=== PATIENT | male | born 1945 | race Caucasian/White ===

== ENCOUNTER → 2024-06-17 10:48 | Outpatient (REF) | payer MEDICARE, OTHER, SELFPAY ==
--- NOTE | 2024-06-19 15:01 | EEG.RPT ---
Electroencephalogram Report
Recording
Date of EE06/19/24
Type of EEG: Routine
Length of EEG recordin minutes
Done with Video Recording: Yes
Patient Status: Outpatient
Recording Conditions: Awake, Drowsy and Asleep
Hyperventilation Performed: Yes
Photic Stimulation Performed: Yes
Report
LESS THAN 1 HOUR EEG REPORT
EEG INTERPRETATION:
Unremarkable EEG for age
CLINICAL CORRELATION:
A normal EEG does not rule out a diagnosis of epilepsy. If clinical suspicion for seizure persists, a prolonged recording may be warranted.
Clinical correlation is advised.
METHODS:
A 21 channel digitized electroencephalogram (EEG) was performed in the [facility]. The 10/20 international system of electrode placement was used with ECG and lateral/vertical eye movements recorded. Persyst quantitative EEG
analysis was performed.
ELECTROENCEPHALOGRAPHER IMPRESSION(S):
Quality of study
Good
Background
Unremarkable, well maintained, medium amplitude alpha-frequency and unremarkable anterior-posterior voltage gradient
With eye opening the background activity changed to a low voltage mixture of frequencies.
Sleep
Drowsiness present
Hyperventilation
Did not activate the record
Photic Stimulation
Did not activate the record
ECG
Normal sinus rhythm
== END ==
LOC: EEG 10:48
PROVIDERS: ATTENDING PHYSICIAN Psychiatry & Neurology Neurology; FAMILY PHYSICIAN Internal Medicine
DX: R56.9 Unspecified convulsions (principal)
CPT/HCPCS: 95816

== ENCOUNTER → 2024-06-24 20:27 | Outpatient (REF) | payer MEDICARE, OTHER, SELFPAY | LOC: MRI 20:27 | PROVIDERS: ATTENDING PHYSICIAN Psychiatry & Neurology Neurology; FAMILY PHYSICIAN Internal Medicine | DX: R56.9 Unspecified convulsions (principal) | CPT/HCPCS: 70551 ==

== ENCOUNTER → 2024-06-26 18:05 | Outpatient (REF) | payer MEDICARE, OTHER, SELFPAY | LOC: PAVMRI 18:05 | PROVIDERS: ATTENDING PHYSICIAN Pain Medicine Interventional Pain Medicine; FAMILY PHYSICIAN Internal Medicine | DX: M54.16 Radiculopathy, lumbar region (principal) | CPT/HCPCS: 72148 ==

== ENCOUNTER → 2024-07-12 09:56 | Outpatient (REF) | payer MEDICARE, OTHER, SELFPAY | LOC: HWRCS 09:56 | PROVIDERS: ATTENDING PHYSICIAN Internal Medicine Cardiovascular Disease; FAMILY PHYSICIAN Internal Medicine | DX: I10 Essential (primary) hypertension (principal); I35.0 Nonrheumatic aortic (valve) stenosis; Z95.1 Presence of aortocoronary bypass graft; I25.10 Atherosclerotic heart disease of native coronary artery without angina pectoris | CPT/HCPCS: 93306 ==

== ENCOUNTER 2025-07-05 16:20 | Inpatient (IN) | payer MEDICARE, OTHER, SELFPAY ==
[2025-07-04] VITALS (8 sets, daily range): BP systolic 126–166; BP diastolic 62–78
[2025-07-04 16:16] LABS: APTT 45.0 Sec (23.4-35.0)
[2025-07-04 16:21] LABS: ALT (SGPT) 27 U/L (0-50); AST (SGOT) 29 U/L (17-59); Albumin 4.3 g/dl (3.5-5.0); Alkaline Phosphatase 60 U/L (38-126); Blood Urea Nitrogen 29 mg/dl (9-20); Calcium 9.1 mg/dl (8.4-10.2); Carbon Dioxide 24 mmol/L (22-30); Chloride 100 mmol/L (98-107); Glucose 103 mg/dl (70-99); Lipase 107 U/L (23-300); Potassium 4.2 mmol/L (3.5-5.1); Sodium 134 mmol/L (135-145); Total Protein 7.0 g/dl (6.3-8.2); eGFR 43.56
[2025-07-04 16:22] LABS: Hematocrit 39.5 % (39.0-52.0); Hemoglobin 14.0 g/dL (13.0-18.0); Mean Corp Hgb Conc. 35.4 g/dL (33.0-37.0); Mean Corpuscular Volume 85.5 fL (80.0-94.0); Nucleated Red Blood Cells % 0 % (-); Platelet Count 283 10^3/uL (130-400); Red Cell Dist. Width 12.6 % (11.5-14.5)
[2025-07-04 16:31] LABS: Troponin I < 0.012 ng/ml
--- NOTE | 2025-07-04 17:42 | ED.GENMED ---
History of Present Illness
General
Chief Complaint: Chest Pain
Source: patient
Exam Limitations: none
Time Seen by Provider: 07/04/25 17:16
Nursing documentation reviewed up to this point in time: agreed with
History of Present Illness
History of Present Illness:
The patient is a 79-year-old man with past medical history of coronary artery disease who reports that he grew concerned yesterday when he developed chest pain and shortness of breath while walking his dog. Patient reports he walked his dog again
today and developed some shortness of breath and left arm pain. Currently he is 1 out of 10 heaviness in his left arm but denies chest pain or shortness of breath. Patient denies swelling of his legs. Patient denies calf pain. Patient reports he
is followed by Dr. Ramirze
Past History
Past History
ED Past Medical History: CAD, HTN, Hypercholesterolemia and Seizures
ED Past Surgical History: Cardiac
Social History
Tobacco: Other
Alcohol: Other
Drug: None
Personal:
Living: with family
Employment: Other
Family History
Family History: Other
Review of Systems
Review of Systems
Allergies reviewed?: Yes
All Other Systems: ROS reviewed and negative except as documented in HPI and ROS
Constitutional: Reports no symptoms
EENT: Reports no symptoms
Respiratory: Reports trouble breathing
Cardiac: Reports chest pain
ABD/GI: Reports no symptoms
: Reports no symptoms
Musculoskeletal: Reports no symptoms
Skin: Reports no symptoms
Neurological: Reports no symptoms
Endocrine: Reports no symptoms
Hematologic/Lymphatic: Reports no symptoms
Psychiatric: Reports no symptoms
Phy Exam
Physical Exam
Physical Exam:
Physical Exam
General: no apparent distress, not acutely ill
Neck: supple. no meningeal signs. normal psoterior pharynx
Heart: s1/s2 regular rate and rhythm
Lungs: no acute respiratory distress. clear bilaterally
Abdomen: normal bowel sounds. not tender. no CVAT
Neuro: alert and oriented. no focal neurological deficits
Skin: no rash
Psychiatric: well kept. interactive and cooperative
Extremities: no edema. no calf tenderness. negative homans. good distal pulses
Scores
Heart Score for Chest Pain Patients
STEMI patient?: Not applicable
Course
Orders/Labs/Results
Orders:
Orders
07/04/25 15:13
Electrocardiogram (*1) Urgent
Reason for Study: Chest Pain
EKG- Treatment ONCE
07/04/25 15:36
Complete Blood Count/With Diff Urgent
Comprehensive Metabolic Panel Urgent
Lipase Urgent
PTT Urgent
Troponin I Urgent
07/04/25 18:22
Aspirin Chewable [Low Strength Aspirin] 324 mg PO NOW STA
Nitroglycerin Ointment [Nitro-Bid] 1 inch TOPICAL NOW STA
Abnormal Lab Results
07/04/25
15:36
RBC 4.62 L 10^6/uL
(4.70-6.10)
Absolute Monos (auto) 0.7 H 10^3/uL
(0.1-0.6)
Lymphocytes % 20.1 L %
(20.5-51.1)
APTT 45.0 H Sec
(23.4-35.0)
Sodium 134 L mmol/L
(135-145)
BUN 29 H mg/dl
(9-20)
Creatinine 1.6 H mg/dL
(0.7-1.3)
Glucose 103 H mg/dl
(70-99)
07/04/25 15:36
07/04/25 15:36
Vital Signs
Initial and Last Documented VS:
Initial Vital Signs
Temp Pulse Resp BP Pulse Ox
97.7 F 65 16 148/70 100
07/04/25 15:19 07/04/25 15:19 07/04/25 15:19 07/04/25 15:19 07/04/25 15:19
Last Documented Vital Signs
Temp Pulse Resp BP Pulse Ox
97.7 F 59 16 164/69 98
07/04/25 15:19 07/04/25 18:00 07/04/25 18:00 07/04/25 18:00 07/04/25 18:00
MDM/Problems Addressed
Differential Diagnosis Includes:
Acute coronary syndrome, PE, aortic dissection, pneumonia
MDM/Problems Addressed:
Patient presents with acute chest pain and shortness of breath while walking the dog
Chronic conditions affecting care: CAD
Acute Exacerbation and/or Progression of Chronic Illness:
Patient probably has acute on chronic coronary artery disease
Acute Exacerbation and/or Progression of Chronic Illness: CAD
*Pulse Oximetry
SaO2: 98
Oxygen Mode of Delivery: Room air
Patient hypoxic: no
*EKG
Interpreted by ED Provider?: Yes
Interpretation: abnormal
Comparison EKG: no comparison EKG present
Rate: normal
Rhythm: sinus
Mounds: normal axis
Interval: normal interval
QRS Pattern: normal QRS
Ischemia: non-specific ST changes
*Sales Order Clerk Interpretation
Rate: normal
Interpretation: normal
Rhythm: sinus
*Critical Care Note
Total Time (30-74mins, 75-104mins- exclusive of procedures): Not Applicable
Data Reviewed
Review of Other/Old Records Reveals: Testing (Cardiac echo appears normal from July 2024)
Source: patient and spouse
Patient Management
Social determinants of health affecting care: Living situation and Strong social support
Discussion with other providers: Hospitalist and Other (Dr. Michael Cardenas that patient is being admitted.)
ED Attending Note
-
Portions of this chart may have been created with voice recognition software.� Occasional wrong word or��sound alike� substitutions may have occurred due to the inherent limitations of voice recognition software.
Discharge Plan
Departure
Patient Disposition: Admit
Date of Disposition: 07/04/25
Time of Disposition: 18:23
Admit to: Telemetry
Presentation/result/management discussed w/ accepting MD/DO: Hospitalist
Condition: Good
Covid-19: Not Applicable
Discharge Problem:
Chest pain
Referrals:
Abdi Polanco MD [Family Provider]
Interventions
Interventions:
*General Assessment Last Done: 07/04/25 15:19
*Neglect/Abuse Screening Last Done: 07/04/25 15:19
*ED COVID-19 Vaccine History Last Done: 07/04/25 15:19
*ED Influenza Vaccine History Last Done: 07/04/25 15:19
[facility] Risk Assessment Tool Last Done: 07/04/25 15:10
*Risk Screen - Suicide (C-SSRS) Last Done: 07/04/25 15:19
ED- Cardiac Assessment Last Done: 07/04/25 18:14
Discharge Date and Time
Print Language: ANGUILLAN
[2025-07-04] MEDS: LOW STRENGTH ASPIRIN 324 MG PO (18:27)
[2025-07-04] MEDS: NITRO-BID 1 INCH TOPICAL (18:27)
--- NOTE | 2025-07-04 18:27 | HPS.HSE ---
Addendum entered and electronically signed by Baldev Hill MD 07/04/25 19:12:
This is an addendum to H&P written by Ladan John on 07/04/2025. �Patient seen and examined independently with BLOCK CUTTER.
79-year-old male past medical history of CAD, hypertension, hypercholesteremia, seizures, elevated uric acid level presenting with chest pain and shortness of breath yesterday while walking dog. �Today developed shortness of breath and left arm pain
again while walking dog.� Has slight dull chest pain currently.�
Vital signs unremarkable.
Labs show creatinine of 1.6.
EKG shows normal sinus rhythm. �Troponin negative.
Patient with unstable angina symptoms.� Trend troponins. Nitroglycerin given. �Aspirin given. �Cardiology consulted and planning on cardiac catheterization on Monday.
Unclear if creatinine 1.6 represents CKD or JUN. Hold nephrotoxic medications and monitor for now.�
Original Note:
Family Physician
-
Family Physician: Abdi Polanco
Chief Complaint
-
left sided chest pain
History of Present Illness
79-year-old man with past medical history of coronary artery disease, seizure, HTN, HLD presented to us with left sided chest pain which he noticed while walking the dog outside. he felt dull pain associated with sob. today morning, he woke up with
the dull left sided chest pain radiating to left arm. denied CRAVEN, dizzy or syncope.denied fever, chills, cough,congestion.denied CRAVEN, dizzy or syncope.denied abdominal pain,n,v,d. denied dysuria or hematuria.
admitting for further management.
Medical History
Past Medical History
Past Medical History: Reports Other
Additional Past Medical History:
Hyperlipidemia, hypertension, aortic stenosis, seizure
Past Surgical History: Reports Other
Additional Past Surgical History:
Coronary artery bypass graft, hernia surgery, cholecystectomy, triple bypass
Social History
Tobacco: Non-smoker
Alcohol: None
Drug: None
Personal:
Living: With Family
Family History
Family History: Not pertinent
Allergies / Home Medications
Allergies reflects when Allergies were last updated in [facility].
Home Medications with original date entered in [facility]
Allergy/Medication List:
Allergies
Allergy/AdvReac Type Severity Reaction Status Date / Time
atorvastatin (From Lipitor) Allergy Unknown Verified 07/04/25 15:26
Review of Systems
-
Constitutional: Reports No Symptoms
EENT: Reports No Symptoms
Respiratory: Reports Trouble Breathing
Cardiac: Reports Chest Pain
Abdomen/GI: Reports No Symptoms
: Reports No Symptoms
Musculoskeletal: Reports No Symptoms
Skin: Reports No Symptoms
Neurological: Reports No Symptoms
Endocrine: Reports No Symptoms
Hematologic/Lymphatic: Reports No Symptoms
Psych: Reports No Symptoms
Physical Exam
Vital Signs
Vital Signs
Temp Pulse Resp BP Pulse Ox
97.7 F 59 16 164/69 98
07/04/25 15:19 07/04/25 18:00 07/04/25 18:00 07/04/25 18:00 07/04/25 18:00
Physical Exam
General: Well Developed, Well Nourished and No Apparent Distress
HEENT: NormoCephalic, Moist mucous membranes and Atraumatic
Respiratory: Clear
Cardiac: S1/S2 and Regular Rhythm; No Murmur or Rub
GI: Soft, Non Tender, Non Distended and Normal Bowel Sounds; No Organomegaly
Rectal: Deferred by Provider
Musculoskeletal: No Clubbing, No Cyanosis and No Edema
Skin: No Rash
Neuro: AO x 3 and Nonfocal/grossly intact
Psych: Calm
Laboratory Results
-
07/04/25 15:36
07/04/25 15:36
Laboratory Results
APTT 45.0 Sec (23.4-35.0) H 07/04/25 15:36
Total Bilirubin 0.6 mg/dl (0.2-1.3) 07/04/25 15:36
AST 29 U/L (17-59) 07/04/25 15:36
ALT 27 U/L (0-50) 07/04/25 15:36
Alkaline Phosphatase 60 U/L (38-126) 07/04/25 15:36
Troponin I < 0.012 ng/ml 07/04/25 15:36
Lipase 107 U/L (23-300) 07/04/25 15:36
Data Reviewed
-
Lab Data: Labs Reviewed by me
Impression/Plan
-
#exertional chest pain associated with sob unstable angina
-plan for cardiac cath on Monday
-cardiology consulted.
-EKG with NSR, poor P wave progression. Nonspecific T wave abnormality
-asa continued
-trend trop
-nitro in ER
#Acute kidney injury
-cr 1.6
hold hctz and losartan
-BMP in am
#essential HTN
-held valsartan and hctz due to JUN
#HLD
-statin and Zetia continued
#seizure
-Lamictal continued
#DVT Prophylaxis
-heparin sq
#CODE status
-full code
--- NOTE | 2025-07-04 20:47 | TRANSFER ---
Pt arrived from ED by stretcher. Ambulated into room. A&O x 3. VSS. Troponin drawn and EKG taken per transfer orders. Call mccauley within reach. Will continue to monitor.
[2025-07-04] MEDS: ZETIA 10 MG PO (22:32)
[2025-07-04] MEDS: LAMICTAL 100 MG PO (22:32)
[2025-07-04] MEDS: PRAVACHOL 80 MG PO (22:32)
[2025-07-04 22:53] LABS: Troponin I 0.013 ng/ml
--- NOTE | 2025-07-05 01:42 | W.PN.UPDATE ---
Update Note
Progress Note Update
Pt states that he wishes to be a DNR and his can bring in a formal copy of his code status in the morning. After discussion- pt is aware that DNR means we will not initiate CPR or intubate if his heart or breathing stop. Pt verbalizes
understanding. Code status changed to DNR.
[2025-07-05 01:48] LABS: Troponin I 0.016 ng/ml
[2025-07-05 03:00] VITALS: BP 109/57
[2025-07-05 04:34] LABS: Hematocrit 38.4 % (39.0-52.0); Hemoglobin 13.6 g/dL (13.0-18.0); Mean Corp Hgb Conc. 35.4 g/dL (33.0-37.0); Mean Corpuscular Volume 85.9 fL (80.0-94.0); Platelet Count 263 10^3/uL (130-400); Red Cell Dist. Width 12.4 % (11.5-14.5)
[2025-07-05 04:59] LABS: Blood Urea Nitrogen 33 mg/dl (9-20); Calcium 8.8 mg/dl (8.4-10.2); Carbon Dioxide 25 mmol/L (22-30); Chloride 102 mmol/L (98-107); Glucose 97 mg/dl (70-99); HDL Cholesterol 45 mg/dl; LDL Cholesterol, Calculated 56 mg/dl; Potassium 3.9 mmol/L (3.5-5.1); Sodium 135 mmol/L (135-145); Very Low Density Lipoprotein 21 mg/dl (0-30); eGFR 55.88
[2025-07-05 05:08] LABS: Troponin I 0.017 ng/ml
[2025-07-05 07:00] VITALS: BP 128/67
[2025-07-05] MEDS: LAMICTAL 100 MG PO ×2 (08:26→21:32)
[2025-07-05] MEDS: LOW STRENGTH ASPIRIN 81 MG PO (08:26)
[2025-07-05 09:55] LABS: Glycohemoglobin (HgbA1c) 5.6 % (4.0-5.9)
--- NOTE | 2025-07-05 10:46 | CON.CAR ---
Addendum entered and electronically signed by Beau Cardenas MD 07/05/25 14:54:
I reviewed and agree with the note by BISHNU Bennett and it accurately reflects our care.
I saw and evaluated the patient, and I provided the substantive portion of the medical decision making. My assessment and plan is below:
79-year-old man with coronary artery disease s/p CABG in 2015, hypertension, hyperlipidemia, mild/moderate aortic stenosis who presents with 2 weeks of chest discomfort and dyspnea on exertion. Symptoms feel similar to when he needed CABG in 2015
but less intense. At the time of my interview he is chest pain-free.
Physical exam: RRR, harsh systolic murmur, clear lungs, no lower extremity edema
Labs notable for troponin less than 0.012, 0.013, 0.016, 0.017. Creatinine 1.6 -> 1.3. LDL 56.
ECG: Sinus bradycardia with anterior T wave flattening/inversions
TTE 07/12/2024: LVEF 60-65%, mild/mod with peak/mean 34/19 mmHg
Chest discomfort/DURBIN: Concerning for angina. Will plan for stress test on Monday. Will also check echocardiogram to look for worsening valvular disease though would be unusual for to progress this quickly. Okay to stop trending troponins.
Please repeat ECG/troponin for recurrent chest pain. Continue aspirin, statin, and Zetia.
Original Note:
Consultation
Consultation Request
Date/Time Consultation Requested: 07/04/25 8:45p
Date/Time Consultation Performed: 07/05/25 9a
Requesting Provider: BISHNU Green
Performing Provider: BISHNU Bennett for Dr. Cardenas
Reason for Consultation: chest pain
Medical History
-
Chief Complaint: chest pain
History of Present Illness:
Mr. Guaman is a 79 yo male (patient of Dr. Ramirez) with CAD status post CABG x 3 in 2014, mild/moderate aortic stenosis, hypertension, dyslipidemia, seizure disorder, and RADHA, who presents to the ER with complaints of chest pain and dyspnea
exertion for 2 weeks. He also describes left lateral chest pain that is worse when taking a deep breath. Chest pain and shortness of breath occurred while taking out his trash, walking 30 feet, and while walking his dog on [address]. Symptoms
improved with rest and felt similar to when he needed CABG in 2015. He did not use sublingual nitro, he was given aspirin and nitro in the ER with some relief of pain. He currently has mild left lateral chest pain at rest. He is admitted to the
hospitalist service and we are consulted for chest pain and shortness of breath.
Past Medical History
Past Medical History: Other (as above)
Past Surgical History: Cardiac (CABG x 2 2014)
Social History
Tobacco: Former Smoker
Alcohol: Occasional
Personal:
Living: With Family
Employment: Retired
Family History
Family History: Reviewed & Not Pertinent
Allergies / Home Medications
Allergy/AdvReac Type Severity Reaction Status Date / Time
atorvastatin (From Lipitor) Allergy Unknown Verified 07/04/25 15:26
�Medication �Instructions �Recorded �Confirmed �Type
aspirin 81 mg tablet 81 mg PO DAILY Blood Clot 07/04/25 07/04/25 History
Prevention/Tx
ezetimibe 10 mg tablet 10 mg PO HS High Cholesterol 07/04/25 07/04/25 History
hydrochlorothiazide 25 mg tablet 25 mg PO DAILY Fluid 07/04/25 07/04/25 History
Retention/Swelling
lamotrigine 100 mg tablet 100 mg PO BID Seizures 07/04/25 07/04/25 History
pravastatin 80 mg tablet 80 mg PO HS High Cholesterol 07/04/25 07/04/25 History
valsartan 320 mg tablet 320 mg PO DAILY Blood Pressure 07/04/25 07/04/25 History
Review of Systems
-
History Source: Patient
All other systems: Negative unless noted
Physical Exam
Vital Signs
Temp Pulse Resp BP Pulse Ox
98.6 F 61 17 128/67 97
07/05/25 07:00 07/05/25 07:00 07/05/25 07:00 07/05/25 07:00 07/05/25 07:00
Lab Results
07/05/25 04:25
07/05/25 04:25
Troponin I 0.017 ng/ml 07/05/25 04:25
Physical Exam
General: Well Developed, Well Nourished and No Apparent Distress
HEENT: Normocephalic, Anicteric and Moist Mucous Membranes
Respiratory: Clear and Non Labored Respirations
Cardiac: S1/S2, Regular Rhythm and Murmur (2-3/6 LALITA)
Breast: Deferred by me
GI: Soft and Non Distended
Rectal: Deferred by Provider
Genito-urinary: Clear Urine
Musculoskeletal: No Cyanosis and No Edema
Skin: Warm and Dry
Neuro: AO x 3
Hematologic/Lymphatic: No Lymphadenopathy
Psych: Calm
Impression / Plan
-
Chest pain - stable angina.
- Left lateral chest pain worse with deep breath.
- Troponin trend, less than 0.012, 0.013, 0.016, 0.017.
- Nitro paste on currently.
- consider stress testing vs cath on Monday07/07/25.
Aortic stenosis - mild to moderate on echo 07/2024.
- peak/mean gradients 34/19 mmHg.
- check echo.
- symptoms could be from worsened .
HTN - stable on meds, continue.
HLD - stable on Zetia and Pravastatin.
- LDL 56.
Seizure disorder - stable on meds.
JUN - on admit creatinine 1.6.
- now down to 1.3.
Data Reviewed
-
EKG: Tracing Personally Visualized and interpreted
Radiology: Report Reviewed by me
Medical Tests (Nuc Med, Echo etc): Report Reviewed by me (echo 07/2024: EF 60%, mild-moderate with peak/mean gradient 34/19 mmHg)
Labs: Labs Reviewed by me
Old Records: Reviewed
[2025-07-05 11:00] VITALS: BP 124/63
--- NOTE | 2025-07-05 11:56 | W.PN.HOSP.TC ---
Today's Communication/Plan
-
see plan
Assessment / Plan
Assessment / Plan
Gen: NAD, AAOx3.
Eyes: EOMI, PERRLA, no scleral icterus.
Neck: supple.
CV: RRR, +S1/S2, no m/r/g.
Resp: CTAB, no rales, wheezes, or rhonchi.
Abd: +BS, soft, NT, ND
Skin: No rashes.
Neuro: CN 2-12 intact, non-focal.
Psych: Normal mood and affect.
Stable angina:
-EKG (read by me): SB @ 53, no axis/intervals, TWi V2-V3, no acute ST changes
-Trops <0.012, 0.013, 0.016, 0.017
-cards following
-cont nitropaste
-stress test vs cath 07/07
-cont ASA/statin
Other problems:
JUN, mild, resolved, HCTZ and ARB on hold
Essential HTN: HCTZ and ARB on hold
HLD: cont statin/zetia
Seizure d/o: cont Lamictal
DNR/heparin
Anticipated Discharge: > 48 hours
Subjective/Interval History
-
Date of Service: July 05, 2025
Currently denies chest pain or shortness of breath.
Objective Data
-
Labs:
Laboratory Results
07/05/25
04:25
WBC 7.4
Hgb 13.6
Hct 38.4 L
Plt Count 263
Sodium 135
Potassium 3.9
Chloride 102
Carbon Dioxide 25
BUN 33 H
Creatinine 1.3
Glucose 97
Calcium 8.8
Vital Signs:
Vital Signs
Temp Pulse Resp BP Pulse Ox
97.9 F 53 17 124/63 94
07/05/25 11:00 07/05/25 11:00 07/05/25 11:00 07/05/25 11:00 07/05/25 11:00
[2025-07-05 15:00] VITALS: BP 150/77
--- NOTE | 2025-07-05 18:04 | PTCARENOTE ---
patient has denied chest pain and sob all shift, tolerating diet, independent to br, vss, will continue to monitor.
[2025-07-05 19:00] VITALS: BP 120/60
--- NOTE | 2025-07-05 19:50 | PTCARENOTE ---
Pt takes Valsartan to treat HTN. Pt was asking about when he will receive this medication, since he had not had a dose since he was admitted last night. Medication is on pt home med list, but not ordered in [facility]. While reading through the reports,
Cardiology stated to continue the medication. Dr. Petersen stated to hold. House provider TT to verify. Instructed that pt Creatine is high, and due to the nitro paste we will hold ARBS. Pt notified.
[2025-07-05] MEDS: PRAVACHOL 80 MG PO (21:33)
[2025-07-05] MEDS: ZETIA 10 MG PO (21:33)
[2025-07-05 23:00] VITALS: BP 119/58
[2025-07-06 03:00] VITALS: BP 112/53
[2025-07-06 07:00] VITALS: BP 113/59
[2025-07-06] MEDS: LAMICTAL 100 MG PO ×2 (07:59→21:28)
[2025-07-06] MEDS: LOW STRENGTH ASPIRIN 81 MG PO (07:59)
[2025-07-06 08:03] LABS: Hematocrit 44.3 % (39.0-52.0); Hemoglobin 15.4 g/dL (13.0-18.0); Mean Corp Hgb Conc. 34.8 g/dL (33.0-37.0); Mean Corpuscular Volume 87.7 fL (80.0-94.0); Platelet Count 315 10^3/uL (130-400); Red Cell Dist. Width 12.8 % (11.5-14.5)
--- NOTE | 2025-07-06 08:04 | W.PN.HOSP.TC ---
Today's Communication/Plan
-
see plan
Assessment / Plan
Assessment / Plan
Gen: NAD, AAOx3.
Eyes: EOMI, PERRLA, no scleral icterus.
Neck: supple.
CV: RRR, +S1/S2, 2/6 systolic murmur
Resp: remains CTAB, no rales, wheezes, or rhonchi.
Abd: remains +BS, soft, NT, ND
Skin: No rashes.
Neuro: CN 2-12 intact, non-focal.
Psych: Normal mood and affect.
Stable angina:
-EKG (read by me): SB @ 53, no axis/intervals, TWi V2-V3, no acute ST changes
-Trops <0.012, 0.013, 0.016, 0.017
-cards following
-cont nitropaste
-cont ASA/statin
-stress test vs cath 07/07
Other problems:
JUN, mild, resolved, HCTZ and ARB on hold
Essential HTN: HCTZ and ARB on hold
HLD: cont statin/zetia
Seizure d/o: cont Lamictal
DNR/heparin
Anticipated Discharge: 24 - 48 hours
Subjective/Interval History
-
Date of Service: July 06, 2025
Denies CP.
Objective Data
-
Labs:
Laboratory Results
07/06/25
07:34
WBC 9.5
Hgb 15.4
Hct 44.3
Plt Count 315
Sodium Pending
Potassium Pending
Chloride Pending
Carbon Dioxide Pending
BUN Pending
Creatinine Pending
Glucose Pending
Calcium Pending
Vital Signs:
Vital Signs
Temp Pulse Resp BP Pulse Ox
97.9 F 56 16 112/53 97
07/06/25 03:00 07/06/25 03:00 07/06/25 03:00 07/06/25 03:00 07/06/25 03:00
I&O
07/05/25 07/06/25 07/07/25
06:59 06:59 06:59
Intake Total 1560 / 1560
Balance 1560 / 1560
[2025-07-06 08:33] LABS: Blood Urea Nitrogen 25 mg/dl (9-20); Calcium 9.5 mg/dl (8.4-10.2); Carbon Dioxide 27 mmol/L (22-30); Chloride 101 mmol/L (98-107); Glucose 98 mg/dl (70-99); Potassium 4.1 mmol/L (3.5-5.1); Sodium 137 mmol/L (135-145); eGFR 47.06
[2025-07-06 11:00] VITALS: BP 120/62
--- NOTE | 2025-07-06 12:22 | W.PN.CD ---
Today's Communication / Plan
-
Stress test + echo tomorrow
Impression / Plan
-
79-year-old man with coronary artery disease s/p CABG in 2015, hypertension, hyperlipidemia, mild/moderate aortic stenosis who presents with 2 weeks of chest discomfort and dyspnea on exertion.
Program Officer: James
Chest pain
- Seems consistent with stable angina. Trop flat. ECG unchanged from prior.
- Stress test + echo tomorrow
- Continue ASA, statin, ezetimibe
Aortic stenosis
- mild to moderate on echo 07/2024. peak/mean gradients 34/19 mmHg.
- check echo.
- symptoms could be from worsened .
HTN
- Home Valsartan on hold. Normotensive with nitropaste
HLD
- Stable on Zetia and Pravastatin.
- LDL 56. Consider high-intensity statin.
Seizure disorder - stable on meds.
JUN - on admit creatinine 1.6.
- continue to trend
Subjective: No recurrent chest pain or shortness of breath.
Telemetry: Sinus rhythm. No arrhythmias.
Physical Exam
Vital Signs/Labs
Vital Signs
Temp Pulse Resp BP Pulse Ox
97.6 F 57 18 120/62 99
07/06/25 11:00 07/06/25 11:00 07/06/25 11:00 07/06/25 11:00 07/06/25 11:00
07/05/25 07/06/25 07/07/25
06:59 06:59 06:59
Actual Weight 174 lb 11.2 oz 168 lb 3 oz
07/06/25 07:34
07/06/25 07:34
APTT 45.0 Sec (23.4-35.0) H 07/04/25 15:36
Triglycerides 107 mg/dl (10-149) 07/05/25 04:25
LDL Cholesterol, Calc 56 mg/dl 07/05/25 04:25
VLDL Cholesterol, Calc 21 mg/dl (0-30) 07/05/25 04:25
HDL Cholesterol 45 mg/dl 07/05/25 04:25
LAB Results
07/04/25 07/04/25 07/05/25
15:36 22:19 01:18
Troponin I < 0.012 0.013 0.016
07/05/25
04:25
Troponin I 0.017
Physical Exam
Constitutional: No acute distress and Comfortable
Cardiovascular: Rhythm & rate is regular, Pedal edema present, Systolic murmur present and S1S2 is normal
Respiratory: Respiratory effort normal and Lungs clear to auscul.
Neuro/Psych: AO x 3
Data Reviewed
-
Date of Service: July 06, 2025
Medical Decision Making: Reviewed Test Results, Test Interpretation and Review of Case with other Provider
EKG: Tracing Personally Visualized and interpreted
Echo: Report Reviewed by me
Labs: Labs Reviewed by me
--- NOTE | 2025-07-06 14:29 | CM ---
promotions firm accounts manager reviewed patient's chart and met with patient and patient lives with his spouse in a one story home with one step to enter, patient is independent with adl's and ambulation,. no dme, patient drives, home when stable, no needs.
PCP: Abdi Polanco
Pharmacy [facility] [address]
[2025-07-06 15:00] VITALS: BP 126/63
[2025-07-06 19:00] VITALS: BP 117/62
[2025-07-06] MEDS: PRAVACHOL 80 MG PO (21:26)
[2025-07-06] MEDS: ZETIA 10 MG PO ×2 (21:26→21:28)
[2025-07-06 23:00] VITALS: BP 149/73
[2025-07-07 03:00] VITALS: BP 119/58
[2025-07-07 06:20] LABS: Hematocrit 41.0 % (39.0-52.0); Hemoglobin 14.3 g/dL (13.0-18.0); Mean Corp Hgb Conc. 34.9 g/dL (33.0-37.0); Mean Corpuscular Volume 87.4 fL (80.0-94.0); Platelet Count 265 10^3/uL (130-400); Red Cell Dist. Width 12.7 % (11.5-14.5)
[2025-07-07 06:41] LABS: Blood Urea Nitrogen 26 mg/dl (9-20); Calcium 8.9 mg/dl (8.4-10.2); Carbon Dioxide 28 mmol/L (22-30); Chloride 101 mmol/L (98-107); Glucose 93 mg/dl (70-99); Potassium 4.1 mmol/L (3.5-5.1); Sodium 136 mmol/L (135-145); eGFR 55.88
[2025-07-07 07:00] VITALS: BP 125/59
[2025-07-07] MEDS: LAMICTAL 100 MG PO (07:24)
[2025-07-07] MEDS: LOW STRENGTH ASPIRIN 81 MG PO (07:24)
--- NOTE | 2025-07-07 10:50 | CM ---
Addendum entered by Ayla Presley RN 07/07/25 14:35:
Spoke with patient and Kimberly in room .
Pt said he was a discharge.
IMM reviewed with pt . He said he was in agreement with discharge.
Batsheva will drive him home.
Offered VN he declined VN .
Plan Home no needs
Original Note:
Cardiology involved .
NPO for Stress test and Echo today.
Independent prior to admission.
PLAN Probable home no needs
[2025-07-07 11:59] VITALS: BP 131/66
--- NOTE | 2025-07-07 13:22 | W.PN.CD ---
Today's Communication / Plan
-
Cont meds
Can consider IMDUR as outpt
Echo shows mod with mean gradient of 22; no ischemia on stress
OK to d/c
We will arrange f/u.
Impression / Plan
-
79-year-old man with coronary artery disease s/p CABG in 2015, hypertension, hyperlipidemia, mild/moderate aortic stenosis who presents with 2 weeks of chest discomfort and dyspnea on exertion.
Bread Panner: James
Chest pain
- Seems consistent with stable angina. Trop flat. ECG unchanged from prior.
- Stress test + echo unremarkable/no ischemia
- Continue ASA, statin, ezetimibe
- discussed adding IMDUR however he prefers to hold off for now can consider at f/u
Aortic stenosis
- moderate now
- check echo.
- symptoms could be from worsened .
HTN
- Home Valsartan on hold. Normotensive with nitropaste
HLD
- Stable on Zetia and Pravastatin.
- LDL 56. Consider high-intensity statin.
Seizure disorder - stable on meds.
JUN - on admit creatinine 1.6.
- continue to trend
Subjective: main symptoms SOB still present; discussed reassuring testing
Telemetry: Sinus rhythm. No arrhythmias.
Physical Exam
Vital Signs/Labs
Vital Signs
Temp Pulse Resp BP Pulse Ox
97.4 F 56 16 125/59 99
07/07/25 07:00 07/07/25 07:00 07/07/25 07:00 07/07/25 07:00 07/07/25 07:00
07/06/25 07/07/25 07/08/25
06:59 06:59 06:59
Actual Weight 168 lb 3 oz 167 lb 11.2 oz
07/07/25 05:50
07/07/25 05:50
APTT 45.0 Sec (23.4-35.0) H 07/04/25 15:36
Triglycerides 107 mg/dl (10-149) 07/05/25 04:25
LDL Cholesterol, Calc 56 mg/dl 07/05/25 04:25
VLDL Cholesterol, Calc 21 mg/dl (0-30) 07/05/25 04:25
HDL Cholesterol 45 mg/dl 07/05/25 04:25
LAB Results
07/04/25 07/04/25 07/05/25
15:36 22:19 01:18
Troponin I < 0.012 0.013 0.016
07/05/25
04:25
Troponin I 0.017
Physical Exam
Constitutional: No acute distress and Comfortable
EENT: Anicteric
Cardiovascular: Rhythm & rate is regular and Systolic murmur absent
Respiratory: Respiratory effort normal and Lungs clear to auscul.
GI: Soft
Neuro/Psych: AO x 3
Data Reviewed
-
Date of Service: July 07, 2025
Medical Decision Making: Reviewed Test Results
EKG: Tracing Personally Visualized and interpreted (sr)
Echo: Tracing Personally Visualized and interpreted
Labs: Labs Reviewed by me
[2025-07-07 14:45] VITALS: BP 139/72
--- NOTE | 2025-07-07 17:47 | W.DCSUMMARY ---
Discharge Summary
Discharge Data
Date of Admission: 07/05/25
Date of Discharge: 07/07/25
Total time spent discharging patient (in min): 35
-
Pending Results: No
Hospital Course
Attending physician on day of discharge:
Marni Garcia MD
Discharge diagnosis:
Chest pain
Secondary diagnoses:
Aortic stenosis
HTN
JUN�resolved
Consultations:
Cardiology
Procedures:
Stress echo
Hospital course:
79M with CAD, HTN, HLD, seizures presents with exertional chest pain, shortness of breath. His chest pain resolved after nitro and aspirin given in the ED. Troponins were flat. Creat was noted to be elevated to 1.6, he has valsartan and HCTZ were
held, creatinine improved to 1.3. Symptoms were concerning for angina. Cardiology was consulted, stress echo was performed with no evidence of acute ischemia. His BP was controlled while here, after discussion with cardiology, patient was resumed
on lower dose of his valsartan with instructions for outpatient follow-up BMP and BP check. HCTZ was resumed.
Diagnostic Findings:
Lexiscan stress test
Inconclusive ECG for ischemia.
Normal perfusion no reversible or fixed defects seen.
The exercise tolerance is average for given age and gender.
Stress Risk is moderate risk study (1 - 3% ID or /year) due to pharmacologic agent used.
Systolic function is normal. The ejection fraction is 71%.
Physical exam on discharge:
Gen: NAD
HEENT: PERRLA, EOMI, MMM, neck supple
Cards: RRR, + murmur
Resp: Lungs CTAB, no W/R/R
GI: soft, NT/ND/NABS
MSK: Trace ankle edema
Skin: warm and dry, no rash, ulcer or lesions
Heme: No LAD
Psych: Calm
Neuro: AAOx3
Discharge disposition:
Home
Discharge Plan
-
Patient Disposition: Home (Routine Discharge)
Discharge Diagnosis/Procedures: Chest pain
Diet: Regular
Activity: As tolerated
Driving Restrictions: As prior to admission
Blood Work: repeat BMP for creatinine (kidney function) with PCP
Instructions: Chest pain (DC)
Referrals:
Manuel Ramirez MD [Active, Cardiology] - 07/22/25 11:00 am
Abdi Polanco MD [Family Provider] - in one to two weeks
Additional Discharge Medication Instructions: Decrease valsartan dose to 160mg (half tab) until you see your doctor as an outpatient.
Prescriptions:
Continued
pravastatin 80 mg tablet
80 mg PO HS
aspirin 81 mg Tablet
81 mg PO DAILY
hydrochlorothiazide 25 mg tablet
25 mg PO DAILY
lamotrigine 100 mg tablet
100 mg PO BID
ezetimibe 10 mg tablet
10 mg PO HS
Changed
valsartan 320 mg tablet
160 mg PO DAILY Qty: 0 0RF
Discharge Orders:
Discharge Patient (As Directed); Ordered 07/07/25
Ordered By: Marni Garcia
Discharge Date and Time
Discharge Date/Time: 07/07/25 16:02
Print Language: ROMANIAN
== END 2025-07-07 16:02 | disposition home or self-care (01) | DRG 311 ==
LOC: 3 WEST ACU 16:20
PROVIDERS: Emergency Medicine; Internal Medicine Cardiovascular Disease; Registered Nurse; ADMITTING PHYSICIAN Hospitalist; ATTENDING PHYSICIAN Internal Medicine; CONSULT PHYSICIAN Student in an Organized Health Care Education/Training Program; EMERGENCY PHYSICIAN Emergency Medicine; FAMILY PHYSICIAN Internal Medicine
PROC: 3E073KZ Introduction of Other Diagnostic Substance into Coronary Artery, Percutaneous Approach (ICD-10-PCS; 2025-07-07)
PROC: 4A02XM4 Measurement of Cardiac Total Activity, External Approach (ICD-10-PCS; 2025-07-07)
DX: I20.9 Angina pectoris, unspecified (principal); N17.9 Acute kidney failure, unspecified; I35.0 Nonrheumatic aortic (valve) stenosis; I10 Essential (primary) hypertension; G40.909 Epilepsy, unspecified, not intractable, without status epilepticus; Z95.1 Presence of aortocoronary bypass graft; Z87.891 Personal history of nicotine dependence; E78.00 Pure hypercholesterolemia, unspecified; Z79.82 Long term (current) use of aspirin; Z79.899 Other long term (current) drug therapy; G47.33 Obstructive sleep apnea (adult) (pediatric)
CPT/HCPCS: 78452; 80048; 80053; 80061; 83036; 83690; 84484; 85025; 85027; 85730; 93005; 93017; 93306; 99284; A9500